=== PATIENT | male | born 1955 | race Two or more races ===

== ENCOUNTER 2017-12-26 13:28 | Emergency (ER) | payer OTHER ==
[2017-12-26 13:42] VITALS: TEMP 98.3; BMI 35.4
--- NOTE | 2017-12-26 14:28 | PDOC ---
History of Present Illness - General Chief Complaint: Pain Stated Complaint: FINGER SWELLING Time Seen by Provider: 12/26/17 14:27 History Source: Patient Exam Limitations: No Limitations - History of Present Illness Initial Comments: 12/26/17 14:51 61 y/o M with PMH gout (prophylactically on naproxen 500mg BID PRN), prostate CA , HTN, who presents to the ED with R second digit edema over the past four days. As per pt, he suddenly woke up four days ago, with a swollen, erythematous and warm R second digit. Pt notes decreased ROM in the digit and his pain is not alleviated by naproxen 500mg. The day before his sx started, he had eaten a large amount of red meat. 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 Denies [place], fever, chills, SOB, or changes in urinary or bowel function. Past History - Travel Traveled outside of the country in the last 30 days: No - Past Medical History Allergies/Adverse Reactions: Allergies Allergy/AdvReac Type Severity Reaction Status Date / Time No Known Allergies Allergy Verified 12/26/17 13:37 Home Medications: Ambulatory Orders Amlodipine Besylate [Norvasc -] 10 mg PO DAILY 07/18/12 Metoprolol Tartrate [Lopressor -] 50 mg PO BID 07/18/12 hydrALAZINE HCL [Apresoline -] 50 mg PO BID 06/04/14 Fexofenadine/Pseudoephedrine [Gretchen-D 12 Hour Tablet] 10 mg PO DAILY PRN 03/17 Naproxen [Naprosyn -] 500 mg PO PRN PRN #0 03/17/15 Naproxen [Naprosyn -] 500 mg PO BID PRN #14 tablet 05/26/15 Naproxen [Naprosyn -] 500 mg PO BID #28 tablet 11/06/15 Tamsulosin HCl [Flomax] 0.4 mg PO DAILY 11/06/15 Indomethacin 50 mg PO TID 3 Days #9 capsule 12/26/17 Prednisone 10 mg PO DAILY #6 tablet 12/26/17 Anemia: No Asthma: No Cancer: Yes (PROSTATE) Cardiac Disorders: No COPD: No CHF: No Disorders: Yes HTN: Yes Hypercholesterolemia: Yes - Surgical History Abdominal Surgery: No Appendectomy: No Cardiac Surgery: No Cholecystectomy: Yes (TESTICULAR HYDROCELE REPAIR) Lung Surgery: No Neurologic Surgery: No Orthopedic Surgery: No - Family Disease History Family Disease History: Other: Father (prostate CA), Brother (prostate CA) - Suicide/Smoking/Psychosocial Hx Smoking Status: No Smoking History: Never smoked Have you smoked in the past 12 months: No Number of Cigarettes Smoked Daily: 0 Information on smoking cessation initiated: No Hx Alcohol Use: No Drug/Substance Use Hx: No Substance Use Type: None Hx Substance Use Treatment: No Review of Systems - Review of Systems Able to Perform ROS?: Yes Musculoskeletal: Yes: Gout, Joint Swelling (R 2nd digit), Joint Stiffness All Other Systems: Reviewed and Negative *Physical Exam - Vital Signs Last Vital Signs Temp Pulse Resp BP Pulse Ox 98.3 F 76 18 162/88 100 12/26/17 13:38 12/26/17 13:38 12/26/17 13:38 12/26/17 13:38 12/26/17 13:38 - Physical Exam General Appearance: Yes: Nourished, Appropriately Dressed HEENT: positive: EOMI, AYESHA Neck: positive: Supple Respiratory/Chest: positive: Lungs Clear Cardiovascular: positive: Regular Rhythm, Regular Rate Vascular Pulses: Carotid (R): 2+ Gastrointestinal/Abdominal: positive: Normal Bowel Sounds Musculoskeletal: positive: Decreased Range of Motion, Other (TTP, erythema, edema, decreased passive ROM- R 2nd digit) Integumentary: positive: Dry, Warm Neurologic: positive: surgical services assistant II-XII NML intact ED Treatment Course - LABORATORY CBC & Chemistry Diagram: 12/26/17 16:22 12/26/17 16:22 Medical Decision Making - Medical Decision Making 12/26/17 15:05 61 y/o M with PMH gout (prophylactically on naproxen 500mg BID PRN), prostate CA , HTN, who presents to the ED with R second digit edema over the past four days. Current differentials include: acute gouty flare Following labs have been ordered: CBC BMP ESR CRP uric acid Following have been given: Ibuprofen 800 mg x 1 12/26/17 17:40 Pt labs WNL, decreased pain and tenderness to R 2nd digit. Will send pt home on Prednisone taper 30mg, 20mg, 10mg over next 3 days, along with indomethacin 50mg TID for the next 3 days. Pt to follow up with PCP this upcoming week. *DC/Admit/Observation/Transfer Diagnosis at time of Disposition: Gout attack Qualifiers: Gout site: hand Gout etiology: other secondary cause Laterality: right Qualified Code(s): M10.441 - Other secondary gout, right hand - Discharge Dispostion Disposition: HOME Condition at time of disposition: Improved Admit: No - Prescriptions Prescriptions: Indomethacin 50 mg PO TID 3 Days #9 capsule Prednisone 10 mg PO DAILY #6 tablet - Referrals Referrals: Lisa Horowitz [Primary Care Provider] - - Patient Instructions - Post Discharge Activity
--- NOTE | 2017-12-26 14:32 | PDOC ---
Attending Attestation - Resident Resident Name: MaryKylee - ED Attending Attestation I have performed the following: I have examined & evaluated the patient, The case was reviewed & discussed with the resident, I agree w/resident's findings & plan, Exceptions are as noted - HPI HPI: 12/26/17 18:04 Mr Sofia is a 61 yo M h/o PMH gout (prophylactically on naproxen 500mg BID PRN) , prostate CA, HTN, who presents to the ED with R second digit edema over the past four days. No fevers or chills Swelling and pain have gradually increased over the past 4 days Pt states the pain meds he is taking have not improved his symptoms which prompted his presentation o thte ER ? Ate red meat prior to these symptoms beginning - Physicial Exam PE: 12/26/17 17:57 GENERAL: The patient is in no acute distress. HEAD: Normal EYES: PERRLA, EOMI, sclera anicteric, conjunctiva clear. ENT: Ears normal, nares patent, oropharynx clear without exudates. Moist mucous membranes. NECK: Normal range of motion, supple without lymphadenopathy LUNGS: Breath sounds equal, clear to auscultation bilaterally. No wheezes, and no crackles. HEART:Regular rate and rhythm, normal S1 and S2 without murmur, rub or gallop. ABDOMEN: Soft, nontender, normoactive bowel sounds. No guarding, no rebound. No masses palpable. EXTREMITIES: Normal range of motion NEUROLOGICAL: Cranial nerves II through XII grossly intact. Normal speech. No focal neurological deficits. MUSCULOSKELETAL: Right finger swelling, limited range of motion due to swelling SKIN: Right finger erythema 12/26/17 18:08 - Medical Decision Making 12/26/17 18:01 Laboratory Tests 12/26/17 12/26/17 16:22 16:22 WBC 8.3 Hgb 14.2 D Hct 42.6 Plt Count 223 Sodium 137 Potassium 4.6 Chloride 103 Carbon Dioxide 24 BUN 14 D Creatinine 0.7 D PT feels better after motrin Can be discharged to home Clinical Impression: Gout flair, initial presentation Discharge Disposition - Diagnosis Gout attack Qualifiers: Gout site: hand Gout etiology: other secondary cause Laterality: right Qualified Code(s): M10.441 - Other secondary gout, right hand - Discharge Dispostion Disposition: HOME Condition at time of disposition: Improved Admit: No - Prescriptions Prescriptions: Indomethacin 50 mg PO TID 3 Days #9 capsule Prednisone 10 mg PO DAILY #6 tablet - Referrals Referrals: Lisa Horowitz [Primary Care Provider] - - Patient Instructions Printed Discharge Instructions: DI for Gout - Post Discharge Activity
[2017-12-26] MEDS ORDERED: INDOMETHACIN 50 MG CAPSULE PO ONE (14:52)
[2017-12-26] MEDS ORDERED: IBUPROFEN 400 MG TABLET (FP) PO ONE ×2 (15:29→15:49)
[2017-12-26 16:47] LABS: BASO % 0.9 % (0-2.0); EOS % 1.9 % (0-4.5); HEMATOCRIT 42.6 % (35.4-49); HEMOGLOBIN 14.2 GM/dL (11.7-16.9); LYMPH % 30.5 % (8-40); MCHC 33.4 g/dl (32.0-35.9); MEAN CELL VOLUME 81.1 fl (80-96); MEAN PLT VOLUME 9.7 fl (7.5-11.1); MONO % 6.3 % (3.8-10.2); NEUT % 60.4 % (42.8-82.8); PLATELET COUNT 223 K/MM3 (134-434); RBC 5.25 M/mm3 (4.00-5.60); RDW 13.8 % (11.9-15.9); WHITE BLOOD COUNT 8.3 K/mm3 (4.0-10.0)
[2017-12-26 17:16] LABS: CHLORIDE 103 mmol/L (98-107); SODIUM 137 mmol/L (136-145)
[2017-12-26 17:20] LABS: ANION GAP 10 (8-16); BLOOD UREA NITROGEN 14 mg/dL (7-18); CALCIUM 8.8 mg/dL (8.5-10.1); CO2 24 mmol/L (21-32); CREATININE 0.7 mg/dL (0.7-1.3); GLUCOSE,RANDOM 114 mg/dL (74-106)
[2017-12-26 17:27] LABS: POTASSIUM 4.6 mmol/L (3.5-5.1)
[2017-12-26 18:20] VITALS: BP 153/91; PULSE 67
== END 2017-12-26 18:19 | disposition home or self-care (01) ==
LOC: JER 13:28
DX: M10.041 Idiopathic gout, right hand (principal); I10 Essential (primary) hypertension; Z85.46 Personal history of malignant neoplasm of prostate
CPT/HCPCS: 36415; 80048; 84550; 85025; 85651; 86140; 99282-25